=== PATIENT | male | born 1955 | race Caucasian/White ===

== ENCOUNTER 2017-09-02 09:37 | Emergency (ER) | payer OTHER ==
[~2017-09-02] VITALS: Ht 152.4 cm; Wt 59.0 kg
[2017-09-05] MEDS ORDERED: TAMS0.4C PO (08:22)
[2017-09-05] MEDS ORDERED: CIPRO500 MG PO (08:22)
[2017-09-05] MEDS ORDERED: KETO10TA2 PO (08:22)
== END 2017-09-02 20:08 | disposition home or self-care (01) ==
LOC: ER 09:37
DX: G89.11 Acute pain due to trauma (principal); M54.5 Low back pain; S30.0XXS Contusion of lower back and pelvis, sequela; W18.39XS Other fall on same level, sequela
CPT/HCPCS: 72148

== ENCOUNTER → 2017-09-04 | Emergency (ER) | payer OTHER ==
[~2017-09-04] VITALS: Ht 152.4 cm; Wt 74.4 kg
[~2017-09-04] MED LIST: CIPRO500 MG PO; KETO10TA2 PO; TAMS0.4C PO
== END | disposition home or self-care (01) ==
LOC: ER 13:45
DX: R31.9 Hematuria, unspecified (principal)

== ENCOUNTER 2021-02-07 11:11 | Emergency (ER) | payer OTHER ==
[~2021-02-07] VITALS: Ht 157.5 cm; Wt 72.6 kg
== END 2021-02-07 15:35 | disposition home or self-care (01) ==
LOC: ER 11:11
DX: N20.0 Calculus of kidney (principal); R10.31 Right lower quadrant pain

== ENCOUNTER 2021-04-02 12:25 | Emergency (ER) | payer OTHER ==
[~2021-04-02] VITALS: Ht 157.5 cm; Wt 72.6 kg
[2021-04-02] MEDS ORDERED: KETO10TA2 PO (18:39)
== END 2021-04-02 18:45 | disposition home or self-care (01) ==
LOC: ER 12:25
DX: S80.11XA Contusion of right lower leg, initial encounter (principal); I87.2 Venous insufficiency (chronic) (peripheral); I73.9 Peripheral vascular disease, unspecified; W22.8XXA Striking against or struck by other objects, initial encounter; Y93.89 Activity, other specified; Y92.9 Unspecified place or not applicable; Y99.8 Other external cause status

== ENCOUNTER 2021-07-12 09:35 | Emergency (ER) | payer OTHER ==
[~2021-07-12] VITALS: Ht 157.5 cm; Wt 72.6 kg
[2021-07-12] MEDS ORDERED: STOOL SOFTENER50 MG (09:53)
[2021-07-12] MEDS ORDERED: PHENAZOPYRIDIN100 MG PO (09:53)
== END 2021-07-12 14:30 | disposition home or self-care (01) ==
LOC: ER 09:35
DX: K29.60 Other gastritis without bleeding (principal); N39.0 Urinary tract infection, site not specified
CPT/HCPCS: 74177; Q9965

== ENCOUNTER 2022-10-23 11:31 | Emergency (ER) | payer OTHER ==
[~2022-10-23] VITALS: Ht 157.5 cm; Wt 73.5 kg
[~2022-10-23 11:31] MED LIST changes: +PHENAZOPYRIDIN100 MG PO; +STOOL SOFTENER50 MG
[2022-10-23] MEDS ORDERED: ENALAPRIL MALEA10 MG NGT (13:39)
== END 2022-10-23 14:30 | disposition home or self-care (01) ==
LOC: ER 11:31
DX: R51.9 Headache, unspecified (principal)

== ENCOUNTER 2023-04-24 09:59 | Emergency (ER) | payer OTHER ==
[~2023-04-24] VITALS: Ht 157.5 cm; Wt 72.6 kg
[~2023-04-24 09:59] MED LIST changes: +ENALAPRIL MALEA10 MG NGT
== END 2023-04-24 12:24 | disposition home or self-care (01) ==
LOC: ER 09:59
DX: M54.50 Low back pain, unspecified (principal); M62.830 Muscle spasm of back; I10 Essential (primary) hypertension

== ENCOUNTER 2023-11-16 08:52 | Emergency (ER) | payer OTHER ==
[~2023-11-16] VITALS: Ht 157.5 cm; Wt 73.5 kg
[2023-11-16] MEDS ORDERED: KETOROLAC TROMETHAMINE 30 MG VIAL IM ONE (11:15)
[2023-11-16] MEDS ORDERED: ORPHENADRINE CITRATE 30 MG/ML AMPUL IM ONE (11:15)
[2023-11-16] MEDS ORDERED: DEXAMETHASONE SODIUM PHOSPHATE 4 MG/ML VIAL IM ONE (11:15)
[2023-11-16] MEDS ORDERED: CELEBREX200MG PO (12:51)
[2023-11-16] MEDS ORDERED: TIZANIDINE HCL2 M1 PO (12:51)
== END 2023-11-16 13:06 | disposition home or self-care (01) ==
LOC: ER
DX: S33.5XXA Sprain of ligaments of lumbar spine, initial encounter (principal)

== ENCOUNTER 2023-11-24 08:39 | Emergency (ER) | payer OTHER ==
[~2023-11-24] VITALS: Ht 157.5 cm; Wt 74.8 kg
[~2023-11-24 08:39] MED LIST changes: +CELEBREX200MG PO; +TIZANIDINE HCL2 M1 PO
[2023-11-24] MEDS ORDERED: DEXAMETHASONE SODIUM PHOSPHATE 4 MG/ML VIAL IV STA (10:05)
[2023-11-24] MEDS ORDERED: KETOROLAC TROMETHAMINE 30 MG VIAL IV STA (10:06)
== END 2023-11-24 17:08 | disposition home or self-care (01) ==
LOC: ER 08:39
DX: M51.36 Other intervertebral disc degeneration, lumbar region (principal); M54.50 Low back pain, unspecified; I10 Essential (primary) hypertension

== ENCOUNTER 2023-12-09 09:23 | Emergency (ER) | payer OTHER ==
[~2023-12-09] VITALS: Ht 157.5 cm; Wt 72.6 kg
[2023-12-09] MEDS ORDERED: LOSARTAN POTASSI1 GM PO (09:59)
[2023-12-09] MEDS ORDERED: cloNIDine HCL 0.2 MG TABLET PO ONE (10:30)
[2023-12-09] MEDS ORDERED: KETOROLAC TROMETHAMINE 60 MG VIAL IM ONE (12:15)
== END 2023-12-09 14:45 | disposition home or self-care (01) ==
LOC: ER 09:24
DX: M79.604 Pain in right leg (principal); I10 Essential (primary) hypertension

== ENCOUNTER 2024-04-10 08:31 | Emergency (ER) | payer OTHER ==
[~2024-04-10] VITALS: Ht 157.5 cm; Wt 73.5 kg
[~2024-04-10 08:31] MED LIST changes: +COZAAR100 MG; +COZAAR100 MG PO; +GABAPENTIN300 MG PO; +LOSARTAN POTASSI1 GM PO; +NORFLEX100MG; +PREDNISOLONE ACE5 ML OP
[2024-04-10 09:29] LABS: HEMOGLOBIN 14.1 g/dL (13-16.00); MEAN CELL VOLUME 94.1 fL (80.0-100.00); MEAN CORPUSCULAR HEMOGLOBIN 32.4 pg (27.00-32.0); MEAN CORPUSCULAR HGB CONC 34.4 g/dl (32.0-36.0); PLATELET COUNT 280 K/uL (150-450); RED BLOOD COUNT 4.36 M/uL (4.00-6.00)
[2024-04-10 10:16] LABS: PH,URINE 5.5 (5.0-8.0); URINE APPEARANCE Cloudy; URINE BILIRRUBIN Negative (NEGATIVE); URINE BLOOD Negative; URINE COLOR Yellow; URINE GLUCOSE Negative (NEGATIVE); URINE KETONE Negative (NEGATIVE); URINE LEUKOCYTE Negative; URINE NITRATE Negative; URINE PROTEIN Negative (NEGATIVE); URINE UROBILINOGEN 0.2 E.U./dl
[2024-04-10 10:21] LABS: URINE BACTERIA 21.4 uL (0.0-1933); URINE WBC 6.8 uL (0.0-23.2)
[2024-04-10 10:37] LABS: URINE CAST 0.45 uL (0.0-1.40); URINE EPITHELIAL CELLS 0.9 uL (0.0-38.8)
[2024-04-10 11:13] LABS: CALCIUM 9.1 mg/dL (8.5-10.1); CREATININE SERUM 1.06 mg/dL (0.70-1.30); GFR 69.68; POTASSIUM 3.26 mEq/L (3.5-5.1)
== END 2024-04-10 13:22 | disposition home or self-care (01) ==
LOC: ER 08:32
PROVIDERS: Emergency Medicine
DX: M54.50 Low back pain, unspecified (principal); M51.36 Other intervertebral disc degeneration, lumbar region; K57.30 Diverticulosis of large intestine without perforation or abscess without bleeding; K40.90 Unilateral inguinal hernia, without obstruction or gangrene, not specified as recurrent

== ENCOUNTER 2024-05-30 09:54 | Emergency (ER) | payer OTHER ==
[~2024-05-30] VITALS: Ht 157.5 cm; Wt 72.6 kg
[2024-05-30] MEDS ORDERED: ACETAMINOPHEN 500 MG GEL..CAP PO ONE (11:15)
[2024-05-30] MEDS ORDERED: BUTALB/ACETAMINOPHEN/CAFFEINE 1 TAB TABLET PO ONE (11:45)
[2024-05-30 12:17] LABS: PH,URINE 5.5 (5.0-8.0); URINE APPEARANCE Turbid; URINE BILIRRUBIN Negative (NEGATIVE); URINE BLOOD Trace; URINE COLOR Yellow; URINE GLUCOSE Negative (NEGATIVE); URINE KETONE Negative (NEGATIVE); URINE LEUKOCYTE Trace; URINE NITRATE Negative; URINE PROTEIN Negative (NEGATIVE); URINE UROBILINOGEN 0.2 E.U./dl
[2024-05-30 12:19] LABS: URINE BACTERIA 89.4 uL (0.0-1933); URINE EPITHELIAL CELLS 3.8 uL (0.0-38.8); URINE RBC 220.4 uL (0.0-20.8); URINE WBC 14.6 uL (0.0-23.2)
[2024-05-30 12:24] LABS: HEMATOCRIT 44.6 % (39.0-48.0); HEMOGLOBIN 15.2 g/dL (13-16.00); MEAN CELL VOLUME 94.3 fL (80.0-100.00); MEAN CORPUSCULAR HEMOGLOBIN 32.2 pg (27.00-32.0); MEAN CORPUSCULAR HGB CONC 34.1 g/dl (32.0-36.0); PLATELET COUNT 254 K/uL (150-450); RED BLOOD COUNT 4.73 M/uL (4.00-6.00); RED CELL DISTRIBUTION WIDTH 14.5 % (11.5-14.5)
[2024-05-30 12:52] LABS: URINE CRYSTALS MODERATE /HPF
[2024-05-30 13:11] LABS: ALBUMIN 3.9 gm/dL (3.4-5.0); ALKALINE PHOSPHATASE 101 U/L (50-136); ALT/SGPT 29 U/L (12-78); ANION GAP 5 (10.0-20.0); AST/SGOT 21 U/L (15-37); BILIRUBIN TOTAL 0.44 mg/dL (0.3-1.2); BILIRUBIN,CONJUGATED < 0.10 mg/dL (0.0-0.2); BILIRUBIN,UNCONJUGATED 0.34 mg/dL (0.0-0.6); BLOOD UREA NITROGEN 21 mg/dL (7-18); BUN CREA RATIO 17 (7.0-25.0); CALCIUM 9.7 mg/dL (8.5-10.1); CARBON DIOXIDE 33 mEq/L (21-32); CHLORIDE 108 mmol/L (98-107); CREATININE SERUM 1.25 mg/dL (0.70-1.30); GFR 57.61; GLOBULINA 3.7 G/DL (2.4-3.5); GLUCOSE FASTING 94 mg/dL (65-100); OSMOLALITY SERUM 286 MOSM/KG (275-295); POTASSIUM 3.86 mEq/L (3.5-5.1); SODIUM 142 mmol/L (136-145); TOTAL PROTEIN 7.6 gm/dL (6.4-8.2)
== END 2024-05-30 18:20 | disposition home or self-care (01) ==
LOC: ER 09:54
PROVIDERS: Emergency Medicine
DX: R10.13 Epigastric pain (principal); E03.8 Other specified hypothyroidism; I10 Essential (primary) hypertension; N18.9 Chronic kidney disease, unspecified; K29.90 Gastroduodenitis, unspecified, without bleeding; K57.30 Diverticulosis of large intestine without perforation or abscess without bleeding

== ENCOUNTER 2025-04-04 06:56 | Emergency (ER) | payer OTHER ==
[~2025-04-04] VITALS: Ht 157.5 cm; Wt 72.6 kg
[2025-04-04] MEDS ORDERED: TRIAMCINOLONE ACETONIDE 40 MG/ML VIAL ONE (08:27)
[2025-04-04] MEDS ORDERED: FAMOTIDINE/PF 20 MG/2 ML VIAL ONE (08:28)
[2025-04-04] MEDS ORDERED: NORFLEX100MG PO (08:28)
[2025-04-04] MEDS ORDERED: KETOROLAC TROMETHAMINE 60 MG VIAL IM ONE ×2 (08:28→08:30)
[2025-04-04] MEDS ORDERED: NORVASC5 MG PO (08:28)
[2025-04-04] MEDS ORDERED: FAMOTIDINE/PF 20 MG in 0.9 % SODIUM CHLORIDE 8 ML IV PUSH STA (08:28)
[2025-04-04] MEDS ORDERED: TRIAMCINOLONE ACETONIDE 40 MG/ML VIAL IM ONE (08:30)
== END 2025-04-04 08:40 | disposition home or self-care (01) ==
LOC: ER 06:56
DX: M54.9 Dorsalgia, unspecified (principal)

== ENCOUNTER 2025-06-14 07:02 | Emergency (ER) | payer OTHER ==
[~2025-06-14] VITALS: Ht 157.5 cm; Wt 72.6 kg
[~2025-06-14 07:02] MED LIST changes: +NORFLEX100MG PO; +NORVASC5 MG PO
[2025-06-14] MEDS ORDERED: LOSARTAN POTASSI1 GM MC (07:21)
[2025-06-14] MEDS ORDERED: PROMETHAZINE HCL 25 MG/ML AMPUL IM STA (07:43)
[2025-06-14] MEDS ORDERED: KETOROLAC TROMETHAMINE 30 MG VIAL IM STA (07:43)
[2025-06-14] MEDS ORDERED: ORPHENADRINE CITRATE 30 MG/ML AMPUL IM STA (07:44)
[2025-06-14] MEDS ORDERED: KETOROLAC TROMETHAMINE 30 MG VIAL ONE (07:55)
[2025-06-14] MEDS ORDERED: PROMETHAZINE HCL 25 MG/ML AMPUL ONE (07:56)
[2025-06-14] MEDS ORDERED: ORPHENADRINE CITRATE 30 MG/ML AMPUL ONE (07:56)
[2025-06-14 08:03] LABS: BASO % 0.9 % (0.1-1.2); EOS # 0.29 (0.04-0.54); EOS % 3.2 % (0.7-7.0); LYMPH # 1.52 (1.18-3.74); LYMPH % 16.9 % (19.3-53.1); MEAN PLATELET VOLUME 8.50 fl (9.4-12.4); MONO # 0.90 (0.24-0.82); MONO % 10.0 % (4.7-12.5); NEUT # 6.16 (1.56-6.13); NEUT % 68.2 % (34.0-71.1); RED CELL DISTRIBUTION WIDTH 13.1 % (11.6-14.4)
[2025-06-14 08:28] LABS: ALT/SGPT 35 U/L (12-78); AST/SGOT 21 U/L (15-37); BILIRUBIN TOTAL 0.45 mg/dL (0.3-1.2); BUN CREA RATIO 21 (7.0-25.0); CKMB 1.9 NG/ML (0.5-3.6); CREATININE SERUM 1.07 mg/dL (0.70-1.30); GFR 68.72; GLOBULINA 3.3 G/DL (2.4-3.5); GLUCOSE FASTING 92 mg/dL (65-100); OSMOLALITY SERUM 285 MOSM/KG (275-295)
[2025-06-14 09:01] LABS: URINE APPEARANCE Clear; URINE BILIRRUBIN Negative (NEGATIVE); URINE BLOOD NHT; URINE COLOR Yellow; URINE GLUCOSE Negative (NEGATIVE); URINE KETONE Negative (NEGATIVE); URINE LEUKOCYTE Small; URINE NITRATE Negative; URINE PROTEIN Negative (NEGATIVE); URINE UROBILINOGEN 0.2 E.U./dl
[2025-06-14 09:05] LABS: URINE BACTERIA 16.8 uL (0.0-1933); URINE RBC 6.7 uL (0.0-20.8); URINE WBC 36.7 uL (0.0-23.2)
[2025-06-14 09:34] LABS: URINE CAST 0.00 uL (0.0-1.40); URINE EPITHELIAL CELLS 1.2 uL (0.0-38.8)
== END 2025-06-14 10:04 | disposition home or self-care (01) ==
LOC: ER 07:03
PROVIDERS: Physician Assistant Medical
DX: S40.012A Contusion of left shoulder, initial encounter (principal); S70.02XA Contusion of left hip, initial encounter; W17.89XA Other fall from one level to another, initial encounter; Y93.89 Activity, other specified; Y92.018 Other place in single-family (private) house as the place of occurrence of the external cause; Y99.9 Unspecified external cause status; M62.838 Other muscle spasm; M85.88 Other specified disorders of bone density and structure, other site; I10 Essential (primary) hypertension